=== PATIENT | female | born 1950 | race Caucasian/White ===

== ENCOUNTER 2020-03-12 12:52 | Outpatient (CLI) | payer MEDICARE, OTHER, SELFPAY ==
--- NOTE | 2020-03-12 12:45 | XRR_ITS ---
PROCEDURE INFORMATION: Exam: XR Abdomen, 1 View Exam date and time: 03/12/2020 1:09 PM Age: 69 years old Clinical indication: Condition or disease; Other: Stones TECHNIQUE: Imaging protocol: XR of the abdomen. Views: Frontal supine view of the abdomen. 1 View. COMPARISON: No relevant prior studies available. FINDINGS: Gastrointestinal tract: Normal. No bowel dilation. Caliceal stones are present in the lower pole of both kidneys in the left kidneys stone measure 4 mm, 3 mm, and 3.5 mm. The right kidney lower pole is stone measures 4.5 mm. There is moderate colonic fecal stasis in the ascending and transverse colon. Bones/joints: There is mild lumbar spine levoscoliosis XR/XR KUB [id number] IMPRESSION: Negative for acute GI abnormality. Moderate colonic fecal stasis Caliceal stones in both kidneys
== END 2020-03-12 12:53 | disposition home or self-care (01) ==
LOC: RAD 12:57
PROVIDERS: PCP Family Medicine; Visit Provider Nurse Practitioner Family
DX: N20.0 Calculus of kidney (principal); N12 Tubulo-interstitial nephritis, not specified as acute or chronic
CPT/HCPCS: 74018; 80053; 81001; 87077; 87086; 87186

== ENCOUNTER 2020-04-10 13:45 | Outpatient (CLI) | payer MEDICARE, OTHER, SELFPAY ==
--- NOTE | 2020-04-09 13:30 | XRR_ITS ---
PROCEDURE INFORMATION: Exam: XR Abdomen, 1 View Exam date and time: 04/10/2020 2:02 PM Age: 69 years old Clinical indication: Condition or disease; Kidney or ureter condition; Calculus (stone) in kidney; Patient HX: Follow up stone; Additional info: Kidney stone TECHNIQUE: Imaging protocol: XR of the abdomen. Views: Frontal supine view of the abdomen. 1 View. COMPARISON: CR XR KUB [id number] 03/12/2020 1:10 PM FINDINGS: Gastrointestinal tract: Normal. No bowel dilation. There is moderate colonic fecal stasis involving the ascending and transverse colon. The kidneys are somewhat obscured by colonic contents. Organs: Three small caliceal stones seen in the lower pole collecting system of the left kidney the largest measures 5.4 mm and 4.1 mm. There is a 1.8 mm density just below the L2 transverse process on the left which may represent a calcified urinary tract stone in the proximal left ureter. This finding was visible on prior examination. There is a 3.8 mm calcified stone lower pole collecting system of the right kidney stable since prior examination. Bones/joints: Lumbar spine levoscoliosis is seen stable since prior examination XR/XR KUB [id number] IMPRESSION: 1. Stable bilateral lower pole urinary collecting systems stones as described. 2. Possible calcified stone in the proximal left ureter 3. Mild lumbar spine levoscoliosis.
== END 2020-04-10 13:46 | disposition home or self-care (01) ==
LOC: RAD 13:51
PROVIDERS: PCP Family Medicine; Visit Provider Urology
DX: N20.0 Calculus of kidney (principal)
CPT/HCPCS: 74018; 81001

== ENCOUNTER 2020-04-25 12:23 | Outpatient (CLI) | payer MEDICARE, OTHER, SELFPAY ==
--- NOTE | 2020-04-25 12:00 | XRR_ITS ---
PROCEDURE INFORMATION: Exam: XR Abdomen, 1 View Exam date and time: 04/25/2020 12:34 PM Age: 69 years old Clinical indication: Condition or disease; Kidney or ureter condition; Calculus (stone) in ureter; Patient HX: Follow up ureteral calculus TECHNIQUE: Imaging protocol: XR of the abdomen. Views: Frontal supine view of the abdomen. 1 View. COMPARISON: CR XR KUB [id number] 04/10/2020 1:55 PM FINDINGS: Gastrointestinal tract: Normal. No bowel dilation. There is moderate colonic fecal stasis in the ascending and proximal descending colon Bones/joints: There is mild lumbar spine levoscoliosis. There are multiple calcified urinary tract stone seen in the projection of the left kidney lower pole. the largest stones in this area measures 6.6 mm and 5.2 mm. Several small stones are seen. There is an upper pole stone present measuring 3.1 mm. There is a stone in the proximal left ureter measuring 8.1 mm x 4 mm at the level of the L4 left transverse process. This finding was present on prior examination at the level of the L3 left transverse process. Multiple caliceal stones are seen in the right kidney the largest is in the lower pole measuring 5.1 mm. Comparison to prior examination similar findings is seen XR/XR KUB [id number] IMPRESSION: 1. Calcified urinary tract stone proximal left ureter 2. Multiple caliceal stones are seen in the bilateral kidneys 3. Negative for acute GI abnormalities
== END 2020-04-25 12:24 | disposition home or self-care (01) ==
LOC: RAD 12:25
PROVIDERS: PCP Family Medicine; Visit Provider Urology
DX: N20.1 Calculus of ureter (principal); N20.0 Calculus of kidney
CPT/HCPCS: 74018; 81001

== ENCOUNTER 2020-05-07 09:19 | Outpatient (CLI) | payer MEDICARE, OTHER, SELFPAY ==
--- NOTE | 2020-05-07 09:30 | CT_ITS ---
WS: [id number] CT ABDOMEN AND PELVIS NONCONTRAST HISTORY: Stones TECHNIQUE: Imaging performed through the abdomen and pelvis. Coronal and sagittal reformats are submi tted. All CT scans at [facility] use at least one of these dose optimization techniques: automated exposure control; mA and/or kV adjustment per patient size (includes targeted exams where d ose is matched to clinical indication); or iterative reconstruction. DLP: 1144.83 mGy.cm COMPARISON: 10/06/2017. Prior KUB 04/25/2020. Lower thorax: Lung bases are clear. No hiatal hernia. Liver: Normal, no mass or intrahepatic dilatation. Gallbladder: Unremarkable. Pancreas: Normal. Spleen: Normal. Adrenal glands: Normal. Right kidney: Normal size kidney. Nonobstructing 4 mm calcification lower pole. Normal ureter. Left kidney: Mild dilatation of the renal pelvis secondary to an 8 x 5 mm calcification in the proxim al ureter. There are additional nonobstructing calcifications in the LEFT kidney. Multiple additional calcifications with the largest in the mid kidney measuring 5 mm. Abdominal aorta and IVC are unremarkable. No free fluid, intraperitoneal air or significant lymphadenopathy. GI tract: Diffuse constipation. There are numerous scattered diverticula in the descending and sigmoi d colon without acute inflammation. The appendix is normal. Abdominal wall: Small fat-containing umbilical hernia. Pelvis: No free fluid or adenopathy. Uterus and ovaries are negative by CT. Osseous structures: Increase in the lumbar lordosis. L4 anterolisthesis by 5 mm. LEFT convex curvatur e lumbar spine. CT/CT kidney stone [id number] IMPRESSION: 1. Mild LEFT hydroureteronephrosis secondary to an 8 x 5 mm calcification in t he proximal ureter. 2. Nonobstructing bilateral nephrolithiasis. 3. Normal appendix. 4. Constipation.
== END 2020-05-07 09:20 | disposition home or self-care (01) ==
LOC: RAD 09:20
PROVIDERS: PCP Family Medicine; Visit Provider Urology
DX: N20.1 Calculus of ureter (principal); N13.30 Unspecified hydronephrosis; N20.0 Calculus of kidney; K59.00 Constipation, unspecified
CPT/HCPCS: 74176; 81001

== ENCOUNTER 2020-05-23 13:12 | Outpatient (CLI) | payer MEDICARE, OTHER, SELFPAY ==
--- NOTE | 2020-05-23 13:15 | XRR_ITS ---
PROCEDURE INFORMATION: Exam: XR Abdomen, 1 View Exam date and time: 05/23/2020 1:23 PM Age: 69 years old Clinical indication: Condition or disease; Kidney or ureter condition; Calculus (stone) in ureter; Patient HX: Follow up left ureteral calculus TECHNIQUE: Imaging protocol: XR of the abdomen. Views: Frontal supine view of the abdomen. 1 View. COMPARISON: CT kidney stone [id number] 05/07/2020 9:22 AM FINDINGS: Gastrointestinal tract: Normal. No bowel dilation. Moderate colonic fecal stasis is seen throughout the transverse colon. Bones/joints: Unremarkable. There is a faint density in the projection of the mid left ureter at the level of superior endplate of the L4 vertebral body. This finding measures 3.3 mm x 5.2 mm and is suspicious for a stone within the left ureter. Multiple stones are present in the lower pole of both kidneys in the left side measuring 3.5 mm , 6.9 mm , and 4.2 mm. Right side lower pole stones measuring 3 mm x 6 mm and 3 mm. Comparison to prior examination a stone was seen in the proximal left ureter measuring 7 mm x 4 mm XR/XR KUB [id number] IMPRESSION: Calcified stone left ureter as noted Multiple nonobstructing stones lower pole of both kidneys
== END 2020-05-23 13:13 | disposition home or self-care (01) ==
LOC: RAD 13:13
PROVIDERS: PCP Family Medicine; Visit Provider Urology
DX: N20.1 Calculus of ureter (principal); N20.0 Calculus of kidney
CPT/HCPCS: 74018; 81001

== ENCOUNTER → 2020-06-05 15:14 | Outpatient (BNVA) | payer MEDICARE, OTHER, SELFPAY | PROVIDERS: PCP Family Medicine; Visit Provider Nurse Practitioner Family | DX: Z11.59 Encounter for screening for other viral diseases (principal) | CPT/HCPCS: 87635 ==

== ENCOUNTER 2020-06-11 10:17 | Day surgery (SDC) | payer MEDICARE, OTHER, SELFPAY ==
[2020-06-08 10:13] VITALS: BMI 30.2
[2020-06-11] VITALS (7 sets, daily range): BP systolic 109–150; BP diastolic 57–78; PULSE 64–80; RESP 16–20; TEMP 36.1–36.6; O2SAT 97–100
--- NOTE | 2020-06-11 10:23 | XRR_ITS ---
PROCEDURE INFORMATION: Exam: XR Abdomen, 1 View Exam date and time: 06/11/2020 10:34 AM Age: 69 years old Clinical indication: Screening exam; Other: Pre op eswl; Additional info: Preop left eswl TECHNIQUE: Imaging protocol: XR of the abdomen. Views: Frontal supine view of the abdomen. 1 View. COMPARISON: CR XR KUB [id number] 05/23/2020 1:24 PM FINDINGS: Gastrointestinal tract: Normal. No bowel dilation. Organs: Bilateral renal calculi, left more than right. Pelvic calcifications unchanged. Bones/joints: Levoscoliosis, lumbar degenerative change. XR/XR KUB [id number] IMPRESSION: Bilateral renal calculi.
[2020-06-11] MEDS: sodium chloride 0.9% 1,000 ML 30 ML IV (10:59)
--- NOTE | 2020-06-11 11:24 | ANES.PREANE2 ---
Pre-Anesthetic Assessment Pre-Anesthetic Assessment: Height/Weight: Height 1.55 m Weight 72.575 kg Temp Pulse Resp BP Pulse Ox 97.8 F 80 18 150/78 98 06/11/20 10:46 06/11/20 10:46 06/11/20 10:46 06/11/20 10:46 06/11/20 10:46 Preop Diagnosis: Refractory large left mid ureteral stone Proposed Procedure: Operation Date: 06/11/20 12:00 Proposed Procedures p ESWL, possible cystoscopy, ureteral stent [id number] N20.1(Left) - Brooks Loyola MD s Cystoscopy(Not Applicable) - Brooks Loyola MD s Ureteral Stent Placement(Not Applicable) - Brooks Loyola MD Familial anesthetic complications: NOne Was Beta Felisa taken within 24 hours: N/A Last intake: Intake Last Liquid Date 06/11/20 Last Liquid Time 04:30 Last Solid Date 06/09/20 Last Solid Time 00:00 Social: Social History: No alcohol and No tobacco Exam: Pre-Anes Outpt Exam: alert, oriented x 3, clear to auscultation bilaterally and regular rate & rhythm Airway: Cervical ROM: WNL MP: 2 Dentition: Full Neuropsych: Neuropsych: Anxiety Anesthetic Plan: ASA status: 1 Anesthesia: General Risk of > 500 ml blood loss (7ml/kg in children): No Meds/Allergies Current Medications: Current Medications Generic Name Dose Route Start Last Admin Trade Name Freq PRN Reason Stop Dose Admin Sodium Chloride 1,000 mls @ 30 ml s/hr 06/11/20 10:30 06/11/20 10:59 Sodium Chloride 0.9% IV 06/12/20 10:29 30 mls/hr .Q24H KIA Administration PFSH Anesthesia PFSH: Medical History Calculus of kidney Hypocitraturia Recurrent UTI Surgical History H/O colonoscopy H/O oral surgery WISDOM TEETH EXTRACTION History of bunionectomy Family History Father , DID AT AGE 90 CHF (congestive heart failure) Mother , AT AGE 70 Cancer COLON CANCER, SKIN CANCER Social History Smoking and tobacco status: never smoked Alcohol intake: never Marital status: Current occupational status: retired History of recent travel: No Data Anesthesia Cardiac Studies: No Data to Display
--- NOTE | 2020-06-11 12:09 | W.PM.OPSUD ---
Surgery/Procedure H&P Update DATE OF PROCEDURE: June 11, 2020 DATE H&P PERFORMED: 05/23/20 H&P UPDATE INFORMATION: I have reviewed H&P completed within last 30 days, I have examined patient prior to procedure, Changes to prior documentation as noted here and H&P is in [facility] [place] on date indicated CHANGES TO PREVIOUS DOCUMENTATION: The stone has migrated to just below the left pelvic vessels. The hope would be that we could treat the stone well enough so that it does not require stent. Today prior to the procedure she requested that we consider treating the stones in the left kidney and I reviewed that extensively with her as I had done before. Previously she had wanted not to treat them but today she has decided (prior to any sedation etc.) to proceed with beginning treatment on the multiple stones in the left kidney. She does understand that this will require a stent due to the bulk of the stones. Also understands that the stent will stay in place until all the stones are fragmented enough that they should easily pass. We will proceed with ESWL to the ureteral and renal calculi followed by stenting. PREOP DIAGNOSIS: Refractory large left mid ureteral stone PLANNED PROCEDURE: Operation Date: 06/11/20 12:00 Proposed Procedures p ESWL, possible cystoscopy, ureteral stent [id number] 53887 N20.1(Left) - Brooks Loyola MD s Cystoscopy(Not Applicable) - Brooks Loyola MD s Ureteral Stent Placement(Not Applicable) - Brooks Loyola MD
--- NOTE | 2020-06-11 12:10 | PM.OP ---
Operative Report Date of procedure: June 11, 2020 Pre-op Diagnosis: Refractory left ureteral stone, LEFT renal calculi Post-op diagnosis: same Procedure Done: 1. Extracorporeal shockwave lithotripsy to left ureteral calculus and left renal calculi 2. Cystoscopy, LEFT: Retrograde ureteropyelogram, URETERAL STENT (6 x 24) no string Implants: Left ureteral stent. Pathology: Stone fragments Surgeon: Nir Wire Straightener: Lithotripsy Jet Piercer Operator: Tayla Anesthesia: General Estimated blood loss: Minimal Urine output: Not measured Complications: None Findings: 1. The left distal ureteral stone completely fragmented within 500 shocks. 2. A total of 2000 shocks were administered to the stones in the left lower pole with good change 3. No obvious stones could be identified in the ureter on left retrograde ureteropyelogram. There was a calcification that had been seen that appeared to be medial to the UPJ and it was confirmed to be not in the collecting system on retrograde ureteropyelogram. Condition: stable Disposition: PACU Brief History: Ivy is a very pleasant 69-year-old white female with a complicated history of stones having passed them spontaneously in the past. Was recently diagnosed with a left mid ureteral stone with minimal symptoms and elected to try and pass it. She continued to have intermittent symptoms over time though in the stone showed minimal progress. She was also known to have multiple stones in the left kidney. Ultimately she elected treatment with ESWL to the ureteral stone, stent placement and ESWL to the renal calculi. Procedure: After routine preoperative evaluation examination and obtaining of informed consent she was taken to the operating suite on 06/11/2020 where general anesthesia was administered without difficulty after appropriate timeout was performed, SCDs confirmed to be functioning, preoperative antibiotics administered, beta-willie protocol confirmed. In supine position on the Dornier unit with a ureteral stone in the focal point utilizing biplanar fluoroscopy and the shock head positioned anteriorly. Therapy initiated intensity of 1 and advanced to an intensity of 4 with a rate of 60. Within 500 shocks at stone could no longer be seen. The focal point was then moved to the left lower pole with a shock head positioned anteriorly as well. Good focus was obtained. Intensity of 1 advanced to 4 with a several minute pause at a rate of 60. Good change was noted. After another 2000 shocks the stones could no longer be identified. She was then positioned in dorsolithotomy position and prepped and draped in usual sterile fashion. Cystoscope was passed into into the bladder and multiple small fragments were identified. There was some blood coming out of the left ureteral orifice and some small amount of clot in the bladder. The clot and small fragments were flushed free from the bladder and an 8 Cymraes cone-tipped catheter was utilized for left retrograde ureteropyelogram: No additional filling defects were noted in the ureter. There was free flush of contrast up into the collecting system where there was some hydronephrosis identified. The area of left lower pole were easily identified and there was a small amount of filling defect there consistent with the stone treated. The area of the calcification seen on the initial KUB was proven to be outside the collecting system. A flexible tip guidewire was advanced up the left ureter into the midpole calyx and a 6 Cymraes by 24 cm double-pigtail stent was advanced over the guidewire through the cystoscope into appropriate position as confirmed via fluoroscopy and cystoscopy. Additional 500 shocks to complete the full complement of 2500 shocks were administered to the left lower pole filling defect and by the completion of those 500 shocks no additional stone fragments could be identified. Tolerated the procedure well without complications and was awakened in the operating room and returned to the care of room in stable condition. Plans: 1. Discharge from outpatient surgery today 2. Follow-up next week with a KUB and likely cystoscopy with stent removal.
--- NOTE | 2020-06-11 14:40 | ANE.PACU2 ---
Inpatient post-anesthesia follow up: Airway intact: Yes Vital signs: Temperature 97.1 F Pulse Rate 64 Respiratory Rate 18 Blood Pressure 133/77 Pulse Oximetry 97 Oxygen Delivery Me thod Room Air Oxygen Flow Rate 8 Fraction of Inspir ed Oxygen Hydration adequate: Yes Nausea and vomiting: No Pain level: 1 Mental status: Baseline
[2020-06-15 11:48] LABS: Stone Source LEFT RENAL
== END 2020-06-11 14:42 | disposition home or self-care (01) ==
PROVIDERS: PCP Family Medicine; Visit Provider Urology
PROC: (CPT 50590; principal; 2020-06-11 12:00)
PROC: 0TJB8ZZ Inspection of Bladder, Via Natural or Artificial Opening Endoscopic (ICD-10-PCS; CPT 52000; 2020-06-11 12:00)
PROC: (CPT 50605; 2020-06-11 12:00)
PROC: (CPT 74420; 2020-06-11 12:00)
DX: N20.2 Calculus of kidney with calculus of ureter (principal); Z79.82 Long term (current) use of aspirin
CPT/HCPCS: 50590; 52332; 12345; 74018; 82365; 88300; J1100; J2405; J2704; J2710; J3010; J3490; J7030

== ENCOUNTER 2020-06-19 10:01 | Outpatient (CLI) | payer MEDICARE, OTHER, SELFPAY ==
--- NOTE | 2020-06-19 10:11 | XRR_ITS ---
PROCEDURE INFORMATION: Exam: XR Abdomen, 1 View Exam date and time: 06/19/2020 10:29 AM Age: 69 years old Clinical indication: Condition or disease; Kidney or ureter condition; Calculus (stone) in kidney and calculus (stone) in ureter; Prior surgery; Surgery type: Eswl; Additional info: Calculus of kidney/l ureteral calculi/post eswl TECHNIQUE: Imaging protocol: XR of the abdomen. Views: Frontal supine view of the abdomen. 1 View. COMPARISON: CR XR KUB [id number] 06/11/2020 10:30 AM FINDINGS: Tubes, catheters and devices: Left-sided double-J catheter extending from the region of the left renal pelvis to the inferior bladder. Gastrointestinal tract: Prominent stool. Intraperitoneal space: Punctate pelvic calcifications, presumably vascular in etiology. Organs: Evaluation of the renal fossa is somewhat limited by overlying bowel gas and stool. Multiple punctate right renal calculi. Bones/joints: Degenerative change and mild scoliosis. XR/XR KUB [id number] IMPRESSION: 1. Evaluation of the renal fossa is somewhat limited by overlying bowel gas and stool. 2. Multiple punctate right renal calculi. 3 . Additional findings as described above.
== END 2020-06-19 10:02 | disposition home or self-care (01) ==
LOC: RAD 10:06
PROVIDERS: PCP Family Medicine; Visit Provider Urology
DX: N20.1 Calculus of ureter (principal); N20.0 Calculus of kidney
CPT/HCPCS: 74018; 81001; 82365

== ENCOUNTER → 2020-06-27 14:32 | Outpatient (BNVA) | payer MEDICARE, OTHER, SELFPAY | PROVIDERS: PCP Family Medicine; Visit Provider Urology | DX: N20.1 Calculus of ureter (principal) | CPT/HCPCS: 88300 ==

== ENCOUNTER 2020-07-31 12:08 | Outpatient (CLI) | payer MEDICARE, OTHER, SELFPAY ==
--- NOTE | 2020-07-31 12:14 | XR_ITS ---
WS: [id number] KUB, 07/31/2020 Clinical Data: URETERAL STONE Comparison: KUB, 06/19/2020. Findings: No abnormal intraabdominal masses are seen. There are calcifications overlying the right kidney. The re is no dilatated small bowel or evidence of obstruction. The left ureteral stent has been removed. There is a levo scoliosis. There is a large amount of fecal material throughout the colon. XR/XR KUB [id number] Impression: 1. Probable right renal calcifications. 2. Large amount of fecal material in the colon.
== END 2020-07-31 12:09 | disposition home or self-care (01) ==
LOC: RAD 12:12
PROVIDERS: PCP Family Medicine; Visit Provider Urology
DX: N20.1 Calculus of ureter (principal)
CPT/HCPCS: 74018; 81003

== ENCOUNTER 2020-08-20 12:42 | Outpatient (CLI) | payer MEDICARE, OTHER, SELFPAY ==
--- NOTE | 2020-08-20 13:05 | MM_ITS ---
WS: [id number] BILATERAL DIGITAL SCREENING MAMMOGRAPHY WITH CAD CLINICAL INFORMATION: SCREENING HISTORY: Screening mammogram. Right nipple inversion. COMPARISON: TECHNIQUE: Bilateral CC and MLO views. FINDINGS: The breasts are composed of heterogeneous fibroglandular density tissue, which can limit the detectio n of small underlying mass lesions. Right nipple inversion appears similar to 2018. Slightly increase d parenchymal distortion deep to the right areola. Recommend spot compression views and ultrasound fo r further evaluation. Left breast is unremarkable and unchanged. Punctate and vascular calcification. MM/[place] [id number] IMPRESSION: BI-RADS: 0-Incomplete: Need additional imaging evaluation FOLLOW UP: Need Additional Imaging Recommend spot compression views right breast at the areola and ultrasound.
--- NOTE | 2020-10-29 09:53 | PC.NURSE ---
Patient had her screening mammo 08/20/20. Report states diagnostic mammo/US needed. I called the patient 08/24/20. Patient stated she does not want to risk getting parada virus since the numbers are getting higher in our area. Patient states she will let her pcp know and will discuss mammo results with her. Mammo techs notified. Vashti BENNETT
== END 2020-08-20 12:43 | disposition home or self-care (01) ==
PROVIDERS: PCP Family Medicine; Visit Provider Family Medicine
DX: Z12.31 Encounter for screening mammogram for malignant neoplasm of breast (principal); N64.59 Other signs and symptoms in breast
CPT/HCPCS: 77067

== ENCOUNTER 2021-01-17 14:41 | Outpatient (CLI) | payer MEDICARE, OTHER, SELFPAY ==
--- NOTE | 2021-01-17 14:48 | XR_ITS ---
WS: [id number] Exam: XR knee RT 3V* [id number] Date/Time of Exam: 01/17/2021 3:07 PM Reason For Exam: PAIN IN RIGHT KNEE No acute fracture or dislocation. Joint compartments are well maintained. No joint effusion. XR/XR knee RT 3V* [id number] IMPRESSION: 1. Negative right knee.
== END 2021-01-17 14:42 | disposition home or self-care (01) ==
LOC: RAD 14:47
PROVIDERS: PCP Family Medicine; Visit Provider Family Medicine
DX: M25.561 Pain in right knee (principal)
CPT/HCPCS: 73562

== ENCOUNTER 2021-01-24 14:29 | Outpatient (RCR) | payer MEDICARE, OTHER, SELFPAY | END 2021-02-18 23:59 | disposition home or self-care (01) | LOC: SPT 14:29 | PROVIDERS: PCP Family Medicine; Referring Provider Family Medicine; Visit Provider Family Medicine | DX: M25.561 Pain in right knee (principal) | CPT/HCPCS: 97110; 97161 ==

== ENCOUNTER 2021-01-29 14:08 | Outpatient (CLI) | payer MEDICARE, OTHER, SELFPAY ==
--- NOTE | 2021-01-29 14:00 | XRR_ITS ---
PROCEDURE INFORMATION: Exam: XR Abdomen Exam date and time: 01/29/2021 2:32 PM Age: 70 years old Clinical indication: Condition or disease; Kidney or ureter condition; Calculus (stone) in kidney; Prior surgery; Surgery type: Lithotripsy; Additional info: N20.0 - calculus of kidney TECHNIQUE: Imaging protocol: XR of the abdomen. Views: Frontal supine view of the abdomen. 1 View. COMPARISON: CR XR KUB [id number] 07/31/2020 12:23 PM FINDINGS: Gastrointestinal tract: Moderate fecal stasis. No evidence of bowel obstruction. Organs: There are small calcifications overlying the mid to lower right renal outline. These were present on the prior x-ray and are consistent with renal calculi. A single calcification on the left is a possible calculus unchanged from prior x-ray Calcifications in the pelvis are unchanged from prior x-ray and are likely phleboliths. Bones/joints: Unremarkable. XR/XR KUB [id number] IMPRESSION: Small right renal calculi and possible left upper pole calculus unchanged from prior x-ray.
== END 2021-01-29 14:09 | disposition home or self-care (01) ==
LOC: RAD 14:16
PROVIDERS: PCP Family Medicine; Visit Provider Urology
DX: N20.0 Calculus of kidney (principal)
CPT/HCPCS: 74018; 81003

== ENCOUNTER 2021-02-19 06:00 | Outpatient (RCR) | payer MEDICARE, OTHER, SELFPAY | END 2021-03-20 23:59 | disposition home or self-care (01) | LOC: SPT 06:00 | PROVIDERS: PCP Family Medicine; Referring Provider Family Medicine; Visit Provider Family Medicine | DX: M25.561 Pain in right knee (principal) | CPT/HCPCS: 97110 ==

== ENCOUNTER 2021-08-23 14:13 | Outpatient (CLI) | payer MEDICARE, OTHER, SELFPAY ==
--- NOTE | 2021-08-23 14:24 | XR_ITS ---
WS: [id number] Bone mineral density performed on a NexBioXA, 08/23/2021 Clinical data: ASYMPTOMATIC MENOPAUSAL STATE Comparison studies: DEXA scan, 08/22/2019, 11/28/2016. Findings: The first 4 lumbar vertebral bodies demonstrated the bone mineral density of 0.934 g/cm2 for a young adult T score of -2.1. The bone mineral density has increased compared to the prior study. Measurement of the left hip reveals a bone mineral density of 0.931 g/cm2 with a young adult T score of -0.6. Measurement of the right hip reveals the bone mineral density of 0.947 g/cm2 for young adult T score of -0.5. XR/XR DEXA axial skeleton* [id number] Impression: 1. The lumbar spine shows osteopenia. 2. The bone mineral density of the hips shows normal bone mineral density which is an increase in the bone mineral density compared to the prior scan.
== END 2021-08-23 14:14 | disposition home or self-care (01) ==
PROVIDERS: PCP Family Medicine; Visit Provider Family Medicine
DX: Z78.0 Asymptomatic menopausal state (principal); M85.88 Other specified disorders of bone density and structure, other site
CPT/HCPCS: 77080

== ENCOUNTER 2021-11-05 14:08 | Outpatient (CLI) | payer MEDICARE, OTHER, SELFPAY ==
--- NOTE | 2021-11-05 14:17 | XR_ITS ---
WS: [id number] KUB, AP view, 11/05/2021 Clinical Data: URETERAL CALCULUS Comparison: KUB, 01/29/2021. Findings: No abnormal intraabdominal masses are seen. There is no dilatated small bowel or evidence of obstruct ion. There are calcifications overlying the midportion of the left kidney and the inferior portion of the right kidney which may represent renal calcifications. There is fecal material in the ascending colon and descending colon. Fecal material and bowel gas obscure detail over the right kidney. XR/XR KUB [id number] Impression: No change in probable bilateral renal calcifications.
== END 2021-11-05 14:09 | disposition home or self-care (01) ==
LOC: RAD 14:14
PROVIDERS: PCP Family Medicine; Visit Provider Urology
DX: N20.1 Calculus of ureter (principal)
CPT/HCPCS: 74018; 81003

== ENCOUNTER → 2022-07-15 10:12 | Outpatient (BNVA) | payer MEDICARE, OTHER, SELFPAY ==
--- NOTE | 2022-07-15 | XR_ITS ---
WS: [id number] Exam: XR foot LT min 3V* [id number] Date/Time of Exam: 07/15/2022 11:37 AM Reason For Exam: LEFT FOOT PAIN No fracture or dislocation. Signs of previous bunion repair. Degenerative changes noted in the IP brandon nts and midfoot joints. Plantar heel spur. No soft tissue foreign bodies. XR/XR foot LT min 3V* [id number] IMPRESSION: 1. No fracture or dislocation. 2. Degenerative changes. Postoperative changes of bunion repair.
== END ==
LOC: GSGYOACUTE 07-16 07:22
PROVIDERS: PCP Family Medicine; Visit Provider Surgery
DX: Z12.11 Encounter for screening for malignant neoplasm of colon (principal); Z86.010 Personal history of colon polyps
CPT/HCPCS: 99203

== ENCOUNTER → 2022-07-15 10:12 | Outpatient (BNVA) | payer MEDICARE, OTHER, SELFPAY | PROVIDERS: PCP Family Medicine; Visit Provider Surgery | DX: Z12.11 Encounter for screening for malignant neoplasm of colon (principal); Z86.010 Personal history of colon polyps | CPT/HCPCS: 73630; 99024; 99203 ==

== ENCOUNTER 2022-08-18 09:07 | Day surgery (SDC) | payer MEDICARE, OTHER, SELFPAY ==
[2022-08-12 14:19] VITALS: BMI 28.3
--- NOTE | 2022-08-18 09:31 | P.HP_ITS ---
Providers/Chief Complaint Primary Care Provider: Gilma Caal MD Chief Complaint: encounter for screening for malignant History of Present Illness Ivy Weinstein is a 71 year old female here for colonoscopy Medications/Allergies Home Medications Medication Instructions Recorded Confirmed Last Taken Type alendronate 70 mg tablet 70 mg PO .weekly 03/12/20 08/12/22 08/06/22 History aspirin 81 mg tablet,delayed 81 mg PO DAILY 03/12/20 08/12/22 08/12/22 History release (Adult Low Dose Aspirin) cholecalciferol (vitamin D3) 25 25 mcg PO DAILY 03/12/20 08/12/22 08/12/22 History mcg (1,000 unit) capsule oxcarbazepine 300 mg tablet 300 mg PO BID 03/12/20 08/12/22 08/12/22 History vitamin E (dl, acetate) 180 mg 400 unit PO DAILY 03/12/20 08/12/22 08/12/22 History (400 unit) capsule lactobacillus combination no.8 3 3,000 mmu cells PO DAILY 05/07/20 08/12/22 08/12/22 History billion cell capsule (Adult Probiotic) hydrocodone 5 mg-acetaminophen 325 1 tab PO Q8H PRN pain #12 tabs 06/11/20 08/12/22 Unknown Rx mg tablet ([facility]) tamsulosin 0.4 mg capsule 0.4 mg PO DAILY PRN n 01/29/21 08/12/22 Unknown History metronidazole 0.75 % topical gel 1 applic topical BID PRN Rosacea 05/28/22 08/12/22 08/12/22 Rx #45 grams potassium citrate 15 mEq (1,620 15 meq PO BID #180 tabs 07/07/22 08/12/22 08/12/22 Rx mg) tablet,extended release Allergies Allergy/AdvReac Type Severity Reaction Status Date / Time No Known Allergies Allergy Verified 07/15/22 10:23 PFSH Acute PFSH: Medical History (Updated 07/15/22 @ 10:48 by Michael Back DO) Calculus of kidney Carpal tunnel syndrome of left wrist History of colon polyps Hypercalcemia Hyperlipidemia Hypocitraturia Recurrent UTI Surgical History H/O colonoscopy H/O oral surgery WISDOM TEETH EXTRACTION History of bunionectomy History of cataract surgery Hx of lithotripsy Family History Father , DID AT AGE 90 CHF (congestive heart failure) Mother , AT AGE 70 Cancer COLON CANCER, SKIN CANCER Social History Smoking and tobacco status: never smoked Alcohol intake: never Marital status: Current occupational status: retired History of recent travel: No A&P Assessment and plan (1) History of colon polyps: (2) Colon cancer screening: Plan Colonoscopy Attestations Medical Necessity Statement*: Home Coding Level of Care Code Acute [employer] for Chg Fwd Diagnoses History of colon polyps Z86.010 Colon cancer screening Z12.11
[2022-08-18 10:10] VITALS: BP 136/81; PULSE 74; RESP 18; TEMP 36.3; O2SAT 100
--- NOTE | 2022-08-18 10:19 | P.ANESASSM_ITS ---
Pre-Anesthetic Assessment Height/Weight: Height 1.55 m Weight 68.039 kg Preop Diagnosis: History of colon polyps Operation Date: 08/18/22 10:30 Proposed Procedures p Colonoscopy 31683,Z86.010,Z12.11(Not Applicable) - Michael Back, DO Was Beta Felisa taken within 24 hours: N/A Was Clonidine taken within 24 hours: N/A Social No alcohol and No tobacco Exam alert, oriented x 3, clear to auscultation bilaterally and regular rate & rhythm Airway Submandibular: within normal limits Cervical ROM: within normal limits Mallampati: Class II Dentition: full Pulmonary None reported CV/HEM None reported None reported Hepatic None reported GI Gastroesophageal Reflux Disease (controlled) Metabolic None reported Musc/skel Osteoarthritis/DJD Neuropsych Anxiety and Depression Anesthetic Plan ASA status: 2 Anesthesia: MAC Risk of > 500 ml blood loss (7ml/kg in children): No Medications/Allergies Home Medications Medication Instructions Recorded Confirmed Last Taken Type alendronate 70 mg tablet 70 mg PO .weekly 03/12/20 08/12/22 08/13/22 History aspirin 81 mg tablet,delayed 81 mg PO DAILY 03/12/20 08/12/22 08/15/22 History release (Adult Low Dose Aspirin) cholecalciferol (vitamin D3) 25 25 mcg PO DAILY 03/12/20 08/12/22 08/16/22 History mcg (1,000 unit) capsule oxcarbazepine 300 mg tablet 300 mg PO BID 03/12/20 08/12/22 08/17/22 History vitamin E (dl, acetate) 180 mg 400 unit PO DAILY 03/12/20 08/12/22 08/16/22 History (400 unit) capsule lactobacillus combination no.8 3 3,000 mmu cells PO DAILY 05/07/20 08/12/22 08/16/22 History billion cell capsule (Adult Probiotic) hydrocodone 5 mg-acetaminophen 325 1 tab PO Q8H PRN pain #12 tabs 06/11/20 08/18/22 4 Years Ago Rx mg tablet ([facility]) ~08/18/18 tamsulosin 0.4 mg capsule 0.4 mg PO DAILY PRN n 01/29/21 08/18/22 4 Years Ago History ~08/18/18 metronidazole 0.75 % topical gel 1 applic topical BID PRN Rosacea 05/28/22 08/12/22 08/18/22 07:30 Rx #45 grams potassium citrate 15 mEq (1,620 15 meq PO BID #180 tabs 07/07/22 08/12/22 08/17/22 Rx mg) tablet,extended release Allergies Allergy/AdvReac Type Severity Reaction Status Date / Time No Known Allergies Allergy Verified 07/15/22 10:23 [facility] Anesthesia Medical History (Updated 07/15/22 @ 10:48 by Michael Back DO) Calculus of kidney Carpal tunnel syndrome of left wrist History of colon polyps Hypercalcemia Hyperlipidemia Hypocitraturia Recurrent UTI Surgical History H/O colonoscopy H/O oral surgery WISDOM TEETH EXTRACTION History of bunionectomy History of cataract surgery Hx of lithotripsy Family History Father , DID AT AGE 90 CHF (congestive heart failure) Mother , AT AGE 70 Cancer COLON CANCER, SKIN CANCER Social History Smoking and tobacco status: never smoked Alcohol intake: never Marital status: Current occupational status: retired History of recent travel: No Data Anesthesia Cardiac Studies: No Data to Display
[2022-08-18] MEDS: sodium chloride 0.9% 1,000 ML 30 ML IV (10:22)
[2022-08-18 11:00] VITALS: BP 118/68; PULSE 76; RESP 16; TEMP 36.1; O2SAT 97
--- NOTE | 2022-08-18 11:04 | ANE.PACU2 ---
Inpatient post-anesthesia follow up: Airway intact: Yes Vital signs: Temperature 97 F Pulse Rate 76 Respiratory Rate 16 Blood Pressure 118/68 Pulse Oximetry 97 Oxygen Delivery Me thod Room Air Oxygen Flow Rate Fraction of Inspir ed Oxygen Hydration adequate: Yes Nausea and vomiting: No Pain level: 1 Mental status: Baseline
[2022-08-18 11:12] VITALS: BP 132/76; PULSE 75; RESP 18; O2SAT 100
== END 2022-08-18 11:27 | disposition home or self-care (01) ==
PROVIDERS: PCP Family Medicine; Visit Provider Surgery
PROC: 0DJD8ZZ Inspection of Lower Intestinal Tract, Via Natural or Artificial Opening Endoscopic (ICD-10-PCS; CPT 45378; principal; 2022-08-18 10:30)
DX: Z12.11 Encounter for screening for malignant neoplasm of colon (principal); Z86.010 Personal history of colon polyps; Z79.82 Long term (current) use of aspirin; K21.9 Gastro-esophageal reflux disease without esophagitis; F41.9 Anxiety disorder, unspecified; F32.A Depression, unspecified; E78.5 Hyperlipidemia, unspecified; K64.8 Other hemorrhoids
CPT/HCPCS: G0121; J2704; J7030

== ENCOUNTER 2022-11-10 13:29 | Outpatient (CLI) | payer MEDICARE, OTHER, SELFPAY ==
--- NOTE | 2022-11-10 14:28 | XR_ITS ---
WS: [id number] Exam: XR KUB [id number] Date/Time of Exam: 11/10/2022 2:28 PM Reason For Exam: Kidney Stone Comparison 11/05/2021. No bowel obstruction or free air. No sign of organ enlargement. There are calcifications superimposin g the right kidney apparently representing known stones. There are nonspecific bilateral pelvic calci fications. Degenerative change and moderate levoscoliosis of the lumbar spine. XR/XR KUB [id number] IMPRESSION: 1. Small calcification superimposing the right kidney apparently representing k nown renal stones. Nonspecific bilateral pelvic calcifications. 2. No acute abdominal process.
== END 2022-11-10 13:30 | disposition home or self-care (01) ==
LOC: RAD 13:32
PROVIDERS: PCP Family Medicine; Visit Provider Urology
DX: N20.0 Calculus of kidney (principal); N39.0 Urinary tract infection, site not specified
CPT/HCPCS: 74018; 81003; 99213

== ENCOUNTER → 2023-03-02 10:47 | Outpatient (BNVA) | payer MEDICARE, OTHER, SELFPAY | PROVIDERS: PCP Family Medicine; Visit Provider Podiatrist Foot & Ankle Surgery | DX: L60.0 Ingrowing nail (principal); M19.071 Primary osteoarthritis, right ankle and foot; M19.072 Primary osteoarthritis, left ankle and foot | CPT/HCPCS: 99204 ==

== ENCOUNTER → 2023-05-27 13:24 | Outpatient (BNVA) | payer MEDICARE, OTHER, SELFPAY | PROVIDERS: PCP Family Medicine; Visit Provider Nurse Practitioner Family | DX: L71.8 Other rosacea (principal); L81.4 Other melanin hyperpigmentation; D22.5 Melanocytic nevi of trunk; L57.8 Other skin changes due to chronic exposure to nonionizing radiation | CPT/HCPCS: 99214 ==

== ENCOUNTER → 2023-09-28 13:54 | Outpatient (BNVA) | payer MEDICARE, OTHER, SELFPAY | PROVIDERS: PCP Family Medicine; Visit Provider Nurse Practitioner Family | DX: L71.8 Other rosacea (principal); L71.0 Perioral dermatitis; L57.8 Other skin changes due to chronic exposure to nonionizing radiation; L81.4 Other melanin hyperpigmentation; D18.01 Hemangioma of skin and subcutaneous tissue; L81.5 Leukoderma, not elsewhere classified | CPT/HCPCS: 99214 ==

== ENCOUNTER 2023-11-16 13:41 | Outpatient (CLI) | payer MEDICARE, OTHER, SELFPAY ==
--- NOTE | 2023-11-16 13:51 | XR_ITS ---
WS: [id number] Exam: XR abdomen min 2V [id number] Date/Time of Exam: 11/16/2023 1:57 PM Reason For Exam: CALCULUS OF KIDNEY Comparison 11/10/2022. No bowel obstruction or free air. No sign of organ enlargement. Calcifications superimpose both kidne ys and apparently represent known renal stones. Levoscoliosis of the lumbar spine. Moderately advance d DJD of the lower lumbar spine. IMPRESSION: 1. No acute abdominal process. 2. Calcifications superimpose both kidneys and apparently represent known bilateral renal stones.
== END 2023-11-16 13:42 | disposition home or self-care (01) ==
LOC: RAD 13:47
PROVIDERS: PCP Family Medicine; Visit Provider Urology
DX: N20.0 Calculus of kidney (principal)
CPT/HCPCS: 74019

== ENCOUNTER 2024-02-12 13:20 | Outpatient (CLI) | payer MEDICARE, SELFPAY ==
--- NOTE | 2024-02-12 13:24 | XR_ITS ---
WS: [id number] DEXA (DUAL ENERGY X-RAY ABSORPTIOMETRY) Bone mineral density was performed using a [employer] machine. HISTORY: OSTEOPENIA;POSTMENOPAUSAL ASYMPTOMATIC MENOPAUSAL STATE COMPARISON: 08/23/2021 Lumbar spine BMD (L1-L4): 0.972 g/cm2 T score: -1.7 Z score: -0.4 Total hip BMD: Left: 0.953 g/cm2. T score: -0.4 Z score: 0.8 Right: 0.990 g/cm2. T score: -0.1 Z score: 1.1 10 year probability of a major osteoporotic fracture is 10.3%. Compared to the prior study from 08/23/2021. Lumbar spine bone mineral density has increased by 4.1%. Bilateral hips bone mineral density has increased by 3.4%. XR/XR DEXA axial skeleton* [id number] IMPRESSION: OSTEOPENIA based upon the WHO classification for females. There has been a significant increase in bone mineral density within both the l umbar spine and hips since the prior study.
== END 2024-02-12 13:21 | disposition home or self-care (01) ==
LOC: RAD 13:21
PROVIDERS: Visit Provider Family Medicine
DX: Z78.0 Asymptomatic menopausal state (principal); M85.89 Other specified disorders of bone density and structure, multiple sites
CPT/HCPCS: 77080

== ENCOUNTER → 2024-10-20 14:08 | Outpatient (BNVA) | payer MEDICARE, SELFPAY | PROVIDERS: Visit Provider Nurse Practitioner Family | DX: L71.8 Other rosacea (principal); L71.0 Perioral dermatitis; L57.8 Other skin changes due to chronic exposure to nonionizing radiation; D22.4 Melanocytic nevi of scalp and neck; L81.4 Other melanin hyperpigmentation; L81.5 Leukoderma, not elsewhere classified; L82.0 Inflamed seborrheic keratosis; L29.89 Other pruritus | CPT/HCPCS: 17110; 99214 ==

== ENCOUNTER → 2025-07-24 12:47 | Outpatient (BNVA) | payer MEDICARE, SELFPAY | PROVIDERS: Visit Provider Student in an Organized Health Care Education/Training Program | DX: R03.0 Elevated blood-pressure reading, without diagnosis of hypertension (principal) | CPT/HCPCS: 99204 ==